=== PATIENT | male | born 1955 | race Caucasian/White ===

== ENCOUNTER 2017-03-10 07:58 | Day surgery (SDC) | payer BC ==
[~2017-03-10] VITALS: Ht 177.8 cm; Wt 99.8 kg
[~2017-03-10 07:58] MED LIST: ALLOPURINOL100 MG PO; AMBIEN5 MG PO; EQ OMEPRAZOLE20 MG PO; INDOCIN25 MG PO; PROAIR HFA IN; SAW PALMETTO80 MG PO; TAMSULOSIN0.4 MG PO
[2017-03-10] MEDS ORDERED: ALBUTEROL SUL0.083 % IN (08:37)
[2017-03-10] MEDS ORDERED: ASPIRIN81 MG PO (08:37)
[2017-03-10] MEDS ORDERED: AZITHROMYCIN500 MG PO (08:39)
[2017-03-10] MEDS ORDERED: MENS MULTI VITAMIN & PO (08:40)
[2017-03-10] MEDS ORDERED: CIALIS10 MG PO (08:41)
[2017-03-10 10:18] VITALS: BP 115/69
== END 2017-03-10 10:15 | disposition home or self-care (01) | DRG 700 ==
LOC: ORM 07:58
PROVIDERS: ATTEND Surgery
PROC: 0DJD8ZZ Inspection of Lower Intestinal Tract, Via Natural or Artificial Opening Endoscopic (ICD-10-PCS; principal; 2017-03-10)
DX: N32.1 Vesicointestinal fistula (principal); I65.29 Occlusion and stenosis of unspecified carotid artery; K57.30 Diverticulosis of large intestine without perforation or abscess without bleeding; J44.9 Chronic obstructive pulmonary disease, unspecified; M19.90 Unspecified osteoarthritis, unspecified site; M10.9 Gout, unspecified; E78.5 Hyperlipidemia, unspecified; E66.9 Obesity, unspecified; Z87.891 Personal history of nicotine dependence; Z87.440 Personal history of urinary (tract) infections

== ENCOUNTER 2017-05-24 12:54 | Emergency (ER) | payer BC ==
[~2017-05-24] VITALS: Ht 177.8 cm; Wt 100.0 kg
[~2017-05-24 12:54] MED LIST changes: +ALBUTEROL SUL0.083 % IN; +ASPIRIN81 MG PO; +AZITHROMYCIN500 MG PO; +CIALIS10 MG PO; +MENS MULTI VITAMIN & PO
[2017-05-24 13:59] LABS: HEMATOCRIT 50.6 % (39.0-50.0); HEMOGLOBIN 16.7 g/dl (14.0-18.0); IMMATURE GRANULOCYTES 0.3 % (0.0-1.0); MEAN CELL VOLUME 92.3 fL CALC (80.0-100.0); MEAN CORPUSCULAR HGB 30.5 pG CALC (26.0-32.0); NEUT# 9.26 thou/uL (1.82-7.42); RED BLOOD COUNT 5.48 mill/uL (4.70-6.10); RED CELL DISTRI WIDTH 14.2 % (11.5-15.5)
[2017-05-24 14:19] LABS: ALBUMIN 4.2 g/dL (3.2-5.0); ALKALINE PHOSPHATASE 105 u/l (38-126); AMYLASE 52 u/l (30-110); ANION GAP 15 (6-22 (CALC)); BILIRUBIN, TOTAL 1.1 mg/dL (0.0-1.4); BUN 15 mg/dL (8-23); BUN/CREATININE RATIO 18 (12-20 (CALC)); CALCIUM 9.5 mg/dL (8.4-10.2); CARBON DIOXIDE 27 mmol/l (22-30); CHLORIDE 101 mmol/l (95-108); CREATININE 0.9 mg/dL (0.7-1.3); GFR > 60 ML/MIN (>=60 (CALC)); GFR FOR AFR.AMER. > 60 ML/MIN (>=60 (CALC)); GLUCOSE 120 mg/dL (82-115); LIPASE 70 u/l (23-300); POTASSIUM 4.3 mmol/l (3.5-5.1); SGOT/AST 18 u/l (19-48); SGPT/ALT 31 u/l (11-66); SODIUM 139 mmol/l (137-146); TOTAL PROTEIN 7.7 g/dL (6.3-8.2)
[2017-05-24 14:31] LABS: MYOGLOBIN 49 ng/mL (0 - 121)
[2017-05-24 14:52] LABS: URINE BILIRUBIN - DIPSTICK NEGATIVE (NEGATIVE); URINE BLOOD DIPSTICK TRACE-INTACT (NEGATIVE); URINE COLOR YELLOW; URINE GLUCOSE - DIPSTICK NEGATIVE (NEGATIVE); URINE KETONE NEGATIVE (NEGATIVE); URINE NITRITE - DIPSTICK NEGATIVE (Negative); URINE PROTEIN - DIPSTICK NEGATIVE (NEG-TRACE); URINE SPECIFIC GRAVITY 1.025; URINE UROBILINOGEN - DIPSTICK 0.2 E.U./dL (0.2)
[2017-05-24 14:55] LABS: URINE CLARITY SLIGHT CLOUDY; URINE LEUK ESTERASE SMALL (NEGATIVE)
[2017-05-24 14:57] VITALS: BP 135/76
[2017-05-24 15:07] LABS: URINE SQUAMOUS EPITHELIAL CELL FEW EPI/hpf (0-FEW); URINE WBC 20-50 WBC/hpf (0-5)
[2017-05-24 15:08] LABS: URINE BACTERIA RARE hpf
[2017-05-24] MEDS ORDERED: CIPROFLOXACN500 MG PO (15:08)
== END 2017-05-24 15:20 | disposition home or self-care (01) | DRG 690 ==
LOC: ED 12:54
PROVIDERS: Emergency Medicine
DX: N39.0 Urinary tract infection, site not specified (principal); N32.1 Vesicointestinal fistula; J44.9 Chronic obstructive pulmonary disease, unspecified; M10.9 Gout, unspecified; N40.0 Benign prostatic hyperplasia without lower urinary tract symptoms; Z87.442 Personal history of urinary calculi

== ENCOUNTER 2018-08-17 06:24 | Day surgery (SDC) | payer BC ==
[~2018-08-17] VITALS: Ht 177.8 cm; Wt 99.8 kg
[~2018-08-17 06:24] MED LIST changes: +CIPROFLOXACN500 MG PO; +HYDROCODONE/ACE1 TAB PO; +LIPITOR20 M1 PO; +PROBIOTI2; +SAW PALMETT4
[2018-08-17 08:16] VITALS: BP 134/71
== END 2018-08-17 08:20 | disposition home or self-care (01) | DRG 558 ==
LOC: ORM 06:24
PROVIDERS: ATTEND Anesthesiology Pain Medicine
PROC: 3E0U33Z Introduction of Anti-inflammatory into Joints, Percutaneous Approach (ICD-10-PCS; principal; 2018-08-17)
PROC: 3E0U3BZ Introduction of Anesthetic Agent into Joints, Percutaneous Approach (ICD-10-PCS; 2018-08-17)
PROC: 3E0U33Z Introduction of Anti-inflammatory into Joints, Percutaneous Approach (ICD-10-PCS; 2018-08-17)
PROC: 3E0U3BZ Introduction of Anesthetic Agent into Joints, Percutaneous Approach (ICD-10-PCS; 2018-08-17)
DX: M24.20 Disorder of ligament, unspecified site (principal); M12.9 Arthropathy, unspecified

== ENCOUNTER 2018-11-30 06:06 | Day surgery (SDC) | payer BC ==
[~2018-11-30] VITALS: Ht 177.8 cm; Wt 102.1 kg
[2018-11-30] MEDS ORDERED: HYDROCODONE/ACE1 TAB PO (07:50)
[2018-12-01 14:27] VITALS: BP 172/74
== END 2018-11-30 08:02 | disposition home or self-care (01) | DRG 552 ==
LOC: ORM 06:06
PROVIDERS: ATTEND Anesthesiology Pain Medicine
PROC: 3E0T3BZ Introduction of Anesthetic Agent into Peripheral Nerves and Plexi, Percutaneous Approach (ICD-10-PCS; principal; 2018-11-30)
PROC: 3E0T33Z Introduction of Anti-inflammatory into Peripheral Nerves and Plexi, Percutaneous Approach (ICD-10-PCS; 2018-11-30)
PROC: 3E0T3BZ Introduction of Anesthetic Agent into Peripheral Nerves and Plexi, Percutaneous Approach (ICD-10-PCS; 2018-11-30)
PROC: 3E0T33Z Introduction of Anti-inflammatory into Peripheral Nerves and Plexi, Percutaneous Approach (ICD-10-PCS; 2018-11-30)
DX: M54.5 Low back pain (principal); M12.9 Arthropathy, unspecified

== ENCOUNTER 2018-12-28 06:47 | Day surgery (SDC) | payer BC ==
[2018-12-28] MEDS ORDERED: TAMSULOSIN0.4 MG PO (07:21)
[2018-12-28] MEDS ORDERED: ALBUTEROL SUL0.083 % IN (07:21)
[2018-12-28] MEDS ORDERED: HYDROCODONE/ACE1 TAB PO (08:54)
[2018-12-28 09:08] VITALS: BP 135/82
== END 2018-12-28 09:45 | disposition home or self-care (01) | DRG 552 ==
LOC: ORM 06:47
PROVIDERS: ATTEND Anesthesiology Pain Medicine
PROC: 3E0T3TZ Introduction of Destructive Agent into Peripheral Nerves and Plexi, Percutaneous Approach (ICD-10-PCS; principal; 2018-12-28)
DX: M54.5 Low back pain (principal); M12.9 Arthropathy, unspecified

== ENCOUNTER 2019-08-31 | Inpatient (IN) | payer MEDICARE ==
[2019-08-31] VITALS (14 sets, daily range): BP systolic 109–141; BP diastolic 45–81
[~2019-08-31] MED LIST changes: +NO MEDS TAKEN; +PERCOCET 5/325M1 TAB OR
[2019-08-31 11:46] LABS: IMMATURE GRANULOCYTES 1.3 % (0.0-5.0); MEAN CORPUSCULAR HGB 31.4 pG CALC (26.0-32.0); MEAN CORPUSCULAR HGB CONC 31.1 g/L CALC (32.0-36.0); NEUT# 6.06 thou/uL (1.82-7.42); RED BLOOD COUNT 4.08 mill/uL (4.70-6.10); RED CELL DISTRI WIDTH 13.5 % (11.5-15.5); URINE BILIRUBIN - DIPSTICK NEGATIVE (NEGATIVE); URINE BLOOD DIPSTICK MODERATE (NEGATIVE); URINE COLOR YELLOW; URINE GLUCOSE - DIPSTICK NEGATIVE (NEGATIVE); URINE KETONE NEGATIVE (NEGATIVE); URINE LEUK ESTERASE NEGATIVE (NEGATIVE); URINE NITRITE - DIPSTICK NEGATIVE (Negative); URINE PROTEIN - DIPSTICK 100 mg/dL (NEG-TRACE); URINE SPECIFIC GRAVITY >=1.030
[2019-08-31 11:58] LABS: ALBUMIN 3.9 g/dL (3.2-5.0); ALKALINE PHOSPHATASE 77 u/l (38-126); BILIRUBIN, TOTAL 0.7 mg/dL (0.0-1.4); BUN 23 mg/dL (8-23); BUN/CREATININE RATIO 30 (12-20 (CALC)); CHLORIDE 95 mmol/l (95-108); CREATININE 0.8 mg/dL (0.7-1.3); GFR > 60 ML/MIN (>=60 (CALC)); GFR FOR AFR.AMER. > 60 ML/MIN (>=60 (CALC)); LIPASE 53 u/l (23-300); SODIUM 141 mmol/l (137-146); TOTAL PROTEIN 7.1 g/dL (6.3-8.2)
[2019-08-31 12:03] LABS: ANION GAP 13 (6-22 (CALC)); CARBON DIOXIDE 38 mmol/l (22-30); POTASSIUM 5.4 mmol/l (3.5-5.1); SGOT/AST 33 u/l (19-48)
[2019-08-31] MEDS ORDERED: CYCLOBENZAPR10 MG PO (12:04)
[2019-08-31 12:05] LABS: URINE MUCUS FEW hpf (NONE-FEW)
[2019-08-31] MEDS ORDERED: METFORMIN500 M1 PO (12:05)
[2019-08-31 12:09] LABS: HEMATOCRIT 41.2 % (39.0-50.0); HEMOGLOBIN 12.8 g/dl (14.0-18.0)
[2019-09-01] VITALS (32 sets, daily range): BP systolic 91–129; BP diastolic 48–68
[2019-09-01 05:42] LABS: ALKALINE PHOSPHATASE 69 u/l (38-126); BILIRUBIN, TOTAL 0.5 mg/dL (0.0-1.4); BUN 19 mg/dL (8-23); BUN/CREATININE RATIO 23 (12-20 (CALC)); CARBON DIOXIDE 34 mmol/l (22-30); CHLORIDE 98 mmol/l (95-108); CREATININE 0.8 mg/dL (0.7-1.3); GFR > 60 ML/MIN (>=60 (CALC)); GFR FOR AFR.AMER. > 60 ML/MIN (>=60 (CALC)); SGOT/AST 30 u/l (19-48); SODIUM 139 mmol/l (137-146)
[2019-09-01 05:48] LABS: HEMATOCRIT 36.7 % (39.0-50.0); HEMOGLOBIN 11.8 g/dl (14.0-18.0); IMMATURE GRANULOCYTES 0.7 % (0.0-5.0); MEAN CELL VOLUME 98.1 fL CALC (80.0-100.0); MEAN CORPUSCULAR HGB 31.6 pG CALC (26.0-32.0); MEAN CORPUSCULAR HGB CONC 32.2 g/L CALC (32.0-36.0); NEUT# 9.55 thou/uL (1.82-7.42); RED BLOOD COUNT 3.74 mill/uL (4.70-6.10); RED CELL DISTRI WIDTH 13.5 % (11.5-15.5)
[2019-09-01 05:57] LABS: ANION GAP 11 (6-22 (CALC)); POTASSIUM 3.9 mmol/l (3.5-5.1)
[2019-09-02] VITALS (24 sets, daily range): BP systolic 91–145; BP diastolic 54–78
[2019-09-02 05:32] LABS: HEMATOCRIT 35.7 % (39.0-50.0); HEMOGLOBIN 11.5 g/dl (14.0-18.0); MEAN CELL VOLUME 98.6 fL CALC (80.0-100.0); MEAN CORPUSCULAR HGB 31.8 pG CALC (26.0-32.0); MEAN CORPUSCULAR HGB CONC 32.2 g/L CALC (32.0-36.0); RED BLOOD COUNT 3.62 mill/uL (4.70-6.10)
[2019-09-02 05:34] LABS: ANION GAP 9 (6-22 (CALC)); BUN 19 mg/dL (8-23); BUN/CREATININE RATIO 21 (12-20 (CALC)); CARBON DIOXIDE 34 mmol/l (22-30); CHLORIDE 103 mmol/l (95-108); CREATININE 0.9 mg/dL (0.7-1.3); GFR > 60 ML/MIN (>=60 (CALC)); GFR FOR AFR.AMER. > 60 ML/MIN (>=60 (CALC)); POTASSIUM 4.2 mmol/l (3.5-5.1); SODIUM 142 mmol/l (137-146)
[2019-09-02 15:16] LABS: ALBUMIN 2.9 g/dL (3.2-5.0); ALKALINE PHOSPHATASE 56 u/l (38-126); ANION GAP 11 (6-22 (CALC)); BILIRUBIN, TOTAL 0.5 mg/dL (0.0-1.4); BUN 21 mg/dL (8-23); BUN/CREATININE RATIO 24 (12-20 (CALC)); CARBON DIOXIDE 29 mmol/l (22-30); CHLORIDE 105 mmol/l (95-108); CREATININE 0.9 mg/dL (0.7-1.3); GFR > 60 ML/MIN (>=60 (CALC)); GFR FOR AFR.AMER. > 60 ML/MIN (>=60 (CALC)); POTASSIUM 4.2 mmol/l (3.5-5.1); SGOT/AST 23 u/l (19-48); SODIUM 141 mmol/l (137-146); TOTAL PROTEIN 5.8 g/dL (6.3-8.2)
[2019-09-03] VITALS (23 sets, daily range): BP systolic 91–123; BP diastolic 49–71
[2019-09-03 05:41] LABS: ALBUMIN 2.6 g/dL (3.2-5.0); ALKALINE PHOSPHATASE 47 u/l (38-126); ANION GAP 9 (6-22 (CALC)); BILIRUBIN, TOTAL 0.3 mg/dL (0.0-1.4); BUN 29 mg/dL (8-23); BUN/CREATININE RATIO 24 (12-20 (CALC)); CARBON DIOXIDE 34 mmol/l (22-30); CHLORIDE 105 mmol/l (95-108); CREATININE 1.2 mg/dL (0.7-1.3); GFR > 60 ML/MIN (>=60 (CALC)); GFR FOR AFR.AMER. > 60 ML/MIN (>=60 (CALC)); HEMATOCRIT 33.8 % (39.0-50.0); HEMOGLOBIN 10.5 g/dl (14.0-18.0); IMMATURE GRANULOCYTES 1.1 % (0.0-5.0); MEAN CELL VOLUME 99.7 fL CALC (80.0-100.0); MEAN CORPUSCULAR HGB CONC 31.1 g/L CALC (32.0-36.0); NEUT# 6.44 thou/uL (1.82-7.42); POTASSIUM 3.9 mmol/l (3.5-5.1); RED BLOOD COUNT 3.39 mill/uL (4.70-6.10); RED CELL DISTRI WIDTH 14.5 % (11.5-15.5); SGOT/AST 26 u/l (19-48); SODIUM 143 mmol/l (137-146); TOTAL PROTEIN 5.4 g/dL (6.3-8.2)
== END 2019-09-03 16:27 | disposition short-term general hospital (02) | DRG 208 ==
PROVIDERS: Family Medicine; Nurse Practitioner Family; ADMIT Internal Medicine
PROC: 0BH17EZ Insertion of Endotracheal Airway into Trachea, Via Natural or Artificial Opening (ICD-10-PCS; principal; 2019-08-31)
PROC: 5A1945Z Respiratory Ventilation, 24-96 Consecutive Hours (ICD-10-PCS; 2019-08-31)
PROC: 05HY33Z Insertion of Infusion Device into Upper Vein, Percutaneous Approach (ICD-10-PCS; 2019-08-31)
PROC: 0T9B70Z Drainage of Bladder with Drainage Device, Via Natural or Artificial Opening (ICD-10-PCS; 2019-08-31)
DX: J10.00 Influenza due to other identified influenza virus with unspecified type of pneumonia (principal); J96.22 Acute and chronic respiratory failure with hypercapnia; J96.21 Acute and chronic respiratory failure with hypoxia; E87.2 Acidosis; J44.1 Chronic obstructive pulmonary disease with (acute) exacerbation; I95.9 Hypotension, unspecified; E11.9 Type 2 diabetes mellitus without complications; F17.200 Nicotine dependence, unspecified, uncomplicated; Z79.84 Long term (current) use of oral hypoglycemic drugs; Z99.81 Dependence on supplemental oxygen
CPT/HCPCS: G9019; J1650; J3370; Q9967; S0164